=== PATIENT | female | born 1985 | race Caucasian/White ===

== ENCOUNTER 2019-04-09 12:53 | Inpatient (IN) | payer OTHER ==
[~2019-04-09] VITALS: Ht 50 cm; Wt 3.2 kg
[2019-06-28] MEDS ORDERED: RINGERS SOLUTION,LACTATED 1,000 ML IV PRN (12:26)
[2019-06-28] MEDS ORDERED: OXYTOCIN 30 UNITS/LACT RINGERS 500 ML IV PRN (12:26)
[2019-06-28] MEDS ORDERED: METOCLOPRAMIDE HCL 5 MG/ML 2 ML VIAL IVP PRN (12:30)
[2019-06-28] MEDS ORDERED: OXYGEN THERAPY IH SCH (12:30)
[2019-06-28] MEDS ORDERED: CITRIC ACID/SODIUM CITRATE 30 ML SOLUTION UDCUP PO PRN (12:30)
[2019-06-28] MEDS ORDERED: AMPICILLIN SODIUM 2 GM/NS 100 ML IV ONE (12:30)
[2019-06-28] MEDS: RINGERS SOLUTION,LACTATED 1,000 ML IV SCH ×3 (12:45→18:15)
[2019-06-28 13:32] LABS: BASOPHILS % (AUTO) 0.3 % (0.0-2.0); EOSINOPHILS % (AUTO) 0.9 % (1.0-6.0); HEMATOCRIT 38.5 % (36-46); LYMPHOCYTES # (AUTO) 1.5 K/uL (1.0-4.8); LYMPHOCYTES % (AUTO) 18.3 % (22.0-44.0); MEAN CORPUSCULAR HEMOGLOBIN 32.5 pg (26.0-34.0); MEAN CORPUSCULAR HGB CONC 33.9 G/dL (31.0-37.0); MEAN CORPUSCULAR VOLUME 96 fL (80-100); MONOCYTES # (AUTO) 0.5 K/uL (0.1-1.0); MONOCYTES % (AUTO) 6.5 % (2.0-9.0); PLATELET COUNT (AUTO) 267 K/uL (150-450); RED BLOOD CELL COUNT(AUTO) 4.01 MIL/uL (4.00-5.20); RED CELL DISTRIBUTION WIDTH 13.8 % (11.5-14.5)
[2019-06-28 14:28] VITALS: BP 123/65
[2019-06-28] MEDS ORDERED: AMPICILLIN SODIUM 1 GM/NS 50 ML IV SCH (17:00)
[2019-06-28] MEDS ORDERED: ROPIVACAINE HCL/PF 0.2% 100 ML ED ONE (17:09)
[2019-06-28] MEDS ORDERED: ROPIVACAINE HCL/PF 0.2% 100 ML ED PRN (17:30)
[2019-06-28] MEDS ORDERED: ONDANSETRON HCL 4 MG/2 ML VIAL IVP PRN (17:30)
[2019-06-28] MEDS ORDERED: DiphenhydrAMINE HCL 50 MG/ML VIAL IVP PRN (17:30)
[2019-06-28] MEDS ORDERED: OxyCODONE HCL/ACETAMINOPHEN 5-325 MG TABLET PO PRN ×3 (19:15→20:30)
[2019-06-28] MEDS ORDERED: ACETAMINOPHEN 1000 MG/ISO-OSM 100 ML IV ONE (19:15)
[2019-06-28] MEDS ORDERED: MINERAL OIL 30 ML UDCUP ONE (19:53)
[2019-06-28] MEDS ORDERED: OXYTOCIN 30 UNITS/LACT RINGERS 500 ML IV ONE (20:25)
[2019-06-28] MEDS ORDERED: LIDOCAINE/PF 1% 30 ML VIAL INJ PRN (20:30)
[2019-06-28] MEDS ORDERED: LANOLIN 7 GM OINTMENT TP PRN (20:30)
[2019-06-28] MEDS ORDERED: IBUPROFEN 800 MG TABLET PO PRN (20:30)
[2019-06-28] MEDS ORDERED: BENZOCAINE 20%/MENTHOL 56 GM SPRAY CANISTER TP PRN (20:30)
[2019-06-28] MEDS ORDERED: GLYCERIN/WITCH HAZEL LEAF 40 PADS JAR TP PRN (20:30)
[2019-06-28] MEDS ORDERED: PHYTONADIONE 1 MG/0.5 ML AMP ONE (20:55)
[2019-06-28] MEDS ORDERED: ERYTHROMYCIN 0.5% 1 GM TUBE OPHTHALMIC OINTMENT ONE (20:56)
[2019-06-29] MEDS: MAGNESIUM HYDROXIDE SUSPENSION 30 ML UDCUP PO PRN ×2 (05:38→21:23)
[2019-06-29 05:49] LABS: BASOPHILS % (AUTO) 0.3 % (0.0-2.0); EOSINOPHILS % (AUTO) 0.9 % (1.0-6.0); HEMATOCRIT 34.6 % (36-46); HEMOGLOBIN 11.9 g/dL (12.0-16.0); LYMPHOCYTES # (AUTO) 1.8 K/uL (1.0-4.8); LYMPHOCYTES % (AUTO) 19.8 % (22.0-44.0); MEAN CORPUSCULAR HEMOGLOBIN 32.8 pg (26.0-34.0); MEAN CORPUSCULAR HGB CONC 34.3 G/dL (31.0-37.0); MEAN CORPUSCULAR VOLUME 96 fL (80-100); MONOCYTES # (AUTO) 0.7 K/uL (0.1-1.0); MONOCYTES % (AUTO) 7.9 % (2.0-9.0); NEUTROPHILS # (AUTO) 6.5 K/uL (1.8-7.7); NEUTROPHILS % (AUTO) 71.1 % (40.0-70.0); PLATELET COUNT (AUTO)-OB 243 K/uL (150-450); RED BLOOD CELL COUNT(AUTO) 3.62 MIL/uL (4.00-5.20); RED CELL DISTRIBUTION WIDTH 13.6 % (11.5-14.5)
[2019-06-29] MEDS: CYCLOBENZAPRINE HCL 10 MG TABLET PO SCH ×4 (07:16→21:00)
[2019-06-30] MEDS: CYCLOBENZAPRINE HCL 10 MG TABLET PO SCH (08:59)
[2019-06-30] MEDS: MAGNESIUM HYDROXIDE SUSPENSION 30 ML UDCUP PO PRN (09:07)
[2019-06-30] MEDS ORDERED: ACET-2247 PO (10:15)
[2019-06-30] MEDS ORDERED: IBUP-2070 PO (10:16)
[2019-06-30] MEDS ORDERED: DOCU-275 PO (10:17)
== END 2019-06-30 11:20 | disposition home or self-care (01) | DRG 807 ==
LOC: 4S 06-28 11:23 → OBSVTOIN 06-28 11:23
PROVIDERS: ADMIT Obstetrics & Gynecology Obstetrics; ATTEND Obstetrics & Gynecology Obstetrics
PROC: 10E0XZZ Delivery of Products of Conception, External Approach (ICD-10-PCS; principal; 2019-06-28)
PROC: 0KQM0ZZ Repair Perineum Muscle, Open Approach (ICD-10-PCS; 2019-06-28)
PROC: 3E0R3BZ Introduction of Anesthetic Agent into Spinal Canal, Percutaneous Approach (ICD-10-PCS; 2019-06-28)
PROC: 00HU33Z Insertion of Infusion Device into Spinal Canal, Percutaneous Approach (ICD-10-PCS; 2019-06-28)
DX: O70.1 Second degree perineal laceration during delivery (principal); Z37.0 Single live birth; Z3A.38 38 weeks gestation of pregnancy
CPT/HCPCS: 86850; 86900; 86901; J0290; J2590; J2795; J3430; J7120